=== PATIENT | male | born 1975 | race Caucasian/White ===

== ENCOUNTER 2025-06-22 14:00 | Outpatient (OUT) | payer OTHER, SELFPAY ==
--- OUTSIDE RECORDS SUMMARY | 2025-06-08 12:24 | XMS_ITS | Continuity of Care Document ---
Author Organization [facility] Address [address] [place] [address] Phone Care Team Providers Care Nuclear Medicine Supervisor Name Role Phone Anusha Mcdonald APRN Primary Care Provider Anusha Mcdonald APRN Attending Provider Care Teams Patient Care Team Team Status: Active Member Role Status Dates Kimmy Tolentino DO Customs Manager Active TAWANNA HarrellpecialistAKatie Estrada Care Provider Active Patient Care Team Team Status: Inactive Member Role Status Dates Anusha Mcdonald APRN Primary Care Provider Active Start: June 08, 2025 End: June 08, 2025Victor Manuel Garcia ProviderActiveStart: June 08, 2025 End: June 08, 2025 Chief Complaint and Reason for Visit Chief Complaint Admit Date 3 month June 08, 2025 3: 43pm Allergies, Adverse Reactions, Alerts Allergen Type Severity Reaction Last Updated Verified Status No Known Allergies Allergy Unknown June 08, 2025 3:49pmYesActive Social History Smoking Status Status Start Date End Date Date of Observa tion Smokes tobacco daily (finding) June 04, 2025 9:39am Observation Status Observation Response Date of Response Legal Sex [facility] ([facility]) [facility] Relationship Condition Age at Onset Recorded Date/T gwendolyn father Unknown Problems Active Problems Medical Problem Onset Date Status Peyronie disease Unknown Active Cyst of right hand Unknown Active Current use of insulin Unknown Active Stented coronary artery 2015 Active Erectile dysfunction Unknown Active Type 2 diabetes mellitus Unknown Active Coronary artery disease Unknown Active Dyslipidemia Unknown Active HLD (hyperlipidemia) Unknown Active STEMI (ST elevation myocardial infarction) Unkno wn Active Testicular lump Unknown Active Wheezes Unknown Active Deformity of erect penis Unknown Active HTN (hypertension) Unknown Active Obesity Unknown Active Inactive/Resolved Problems Medical Problem Onset Date Status Diabetes Unknown Resolved Medications Medication Status Dose Units Route Directions Qty Days St art Date Stop Date End Date Instructions Adherence Empagliflozin 25 mg tablet Discontinued 25 MG PO Daily October 15, 2023 1:00amOctober 2023 5:05pmMetformin 1,000 mg tablet Zlbcqowbwoxk7598UWCKWbqgy dailyFebruary 2023 1:00amOctober 2023 5:05pmSemaglutide (Ozempic) 2 mg/dose (8 mg/3 mL) pen psjqfzdcSrnbnelnfhrv0MW SUBCUTevery weekFebruary 2023 1:00amOctober 2023 4:31pmOn Hold: RESUME 3 MONTHS- SEPTEMBER 2024 WITH UPDATED W6QXqtcpcpapvfi 80 mg tablet Jrbsbxgeijms99QNMZNmswtOzkztoud 2023 1:00amOctober 2023 5:04pm Lisinopril 10 mg vucjagOswgsmmjiciy99DDNFOzifhNmapggqn 2023 1:00amOctober 2023 5:05pmAspirin 81 mg tablet,nrgljeabTsstmthcfysi3AHFXWOcvvdSoflhrou 2023 1:00amOctober 2023 4:28pmNystatin 100,000 unit/gram ointment Ixfggx4WLESCEFQCFFQTNkxwc times dailyFebruary 2023 1:00amComplies with drug therapySildenafil (Viagra) 25 mg gjbhuhCxjhaczbuflp29DHXWQscaa as needed October 15, 2023 1:00amOctober 2023 5:06pmNystatin 100,000 unit/gram fjoneuFeaovdxtrkxz2SIACEJPVGVJMFAfinh daily as neededFebruary 2023 1:00am June 08, 2025 3:57pmpen needle, diabetic (Novofine)Discontinued.Route October 15, 2023 1:00amFebruary 2024 3:62ld38I X 6MMInsulin Detemir U- 100 (Levemir Flexpen) 100 unit/mL (3 mL) insulin qreCqodtqdayvga90DJXBQYFUHS Daily at fduqdzy187Lfotydw 2023 12:00amOctober 2023 10:28amInsulin Glargine (Lantus U-100 Insulin) 100 unit/mL gxicfiwtStpewxywlkoz11RURLKXWEQV Every lxoehvu896Ynhpdcs 2023 12:00amJanuary 2024 5:40pmAspirin 81 mg tablet,nkrhlafqZkuifw08XRNVZlmjtRycokuv 2023 4:28pmComplies with drug therapyLancets (Trueplus Lancets) 30 gauge miscActive0.ROUTE.VSRIPHJ137Xnjhkxyo 2023 10:01amUSE TO TEST BLOOD SUGAR EVERY DAYInsulin Glargine (Basaglar Kwikpen U-100 Insulin) 100 unit/mL (3 mL) insulin blqEwdtmveklkiq85TRQKRAXIFS Every lmkemuc114Qojnjfv 2024 1:00amApril 2024 4:33pmPen Needle, Diabetic (Novofine 32) 32 gauge x 1/4 needleActive0.Ipxph892Zjfykjkb 2024 1:00amOnce daily injectionSildenafil (Viagra) 25 mg wksqayKfejfp04UTMNQmqks as needed for sexual ggqbqhzz0692Zfnm 2024 12:42pmComplies with drug therapy Metformin 1,000 mg xhthneXauoxy7601DPNRYwiyl lqqus60255Fiodxws 2024 5:50pm Complies with drug therapyLisinopril 10 mg grcifsTfxziz58MPSLRvqaw63Uadbiyo 2024 5:50pmComplies with drug therapyAtorvastatin 80 mg xubehoYehfqo71KAEKQlefr 9090October 2024 5:50pmComplies with drug therapyLancets (Trueplus Lancets) 30 gauge miscDiscontinuedgauge.ROUTE.FYREUIRVY020Xccscos 2023 12:00am July 16, 2024 10:02amAs directedAtorvastatin 80 mg ffetgtFytxqbrdugpj74ZY FBVyele8809Kezmjzk 2023 5:04pmOctober 2024 5:50pmEmpagliflozin 25 mg hmoiojFpelilhrcrlb72OZFAQuqrl32Brzcwjp 2023 5:05pmJanuary 2024 5:17pm Lisinopril 10 mg chkhkoWsvfyqpbhjzl60VWYEFyank53Jdhhdre 1st, 2024 5:05pmOctober 2024 5:50pmMetformin 1,000 mg pocspgEqlkygtehkgk1652EWGNMuyfc lpdnf65338 October 2023 5:05pmOctober 2024 5:50pmSildenafil (Viagra) 25 mg tablet Skcnxnecmpuq57OAJBYcdwm as needed for sexual hjejjdnw7670Znkejkc 1st, 2024 5:05pmJuly 2024 12:42pmInsulin Glargine (Lantus U-100 Insulin) 100 unit/mL tsabphgjNxssgqibimjt14RQNLKSJQBHRrkbm gvbyerl373Qieopbv 2024 5:39pmJanuary 2024 12:47pmEmpagliflozin (Jardiance) 25 mg ihymwjGjdtjvmltpks75XIWSXasmr 90January 2024 1:00amApril 2024 4:32pmEmpagliflozin (Jardiance) 25 mg flptfpTafzvl13FMKBCmslv4933Rkrfh 2024 4:32pmComplies with drug therapy Insulin Glargine (Basaglar Kwikpen U-100 Insulin) 100 unit/mL (3 mL) insulin pen Yodwgppawvif12JOAYCDCZPCFfhiy jfjqrmh3420Yvjix 2024 4:32pmJuly 2024 4:19pmTamsulosin 0.4 mg capsuleActive0.4MGPODailyJuly 2024 12:00amComplies with drug therapyInsulin Glargine (Basaglar Kwikpen U-100 Insulin) 100 unit/mL (3 mL) insulin foeCsghwzbxbkwn94MUMIRDJOEFRcvja gcdxjso86.590July 2024 4:13pmJuly 2024 4:20pmInsulin Glargine (Basaglar Kwikpen U-100 Insulin) 100 unit/mL (3 mL) insulin dsfWqhzav74MAJHVKYRHSJrvxa .590July 2024 4:19pmIncreased from 20units to 25units 03/09/25Complies with drug therapy Cephalexin 500 mg hokmtrrBtpqwp407GPADKatzj rxgoq965Uebtilt 2024 12:00am Complies with drug therapy Vital Signs Vital Reading Result Reference Range Collection Date/Time Height 70 [in_i] June 08, 2025 3:35svVwydba126.00 kgJunuofl [facility] 2024 3:49pmBody Temperature 97.6 [degF]97.6-99.0Octuofl [facility] 2024 3:49pmHeart Esno496 /ipi19-108OloqdclJune 08, 2025 3:49pmRespiratory rate20 /anl54-50MsspotxJune 08, 2025 3:49pmOxygen saturation by Pulse ouzywjpc28 %95-100June 08, 2025 3:49pmBP Ebcjwqra712 mm[Hg]100-140June 08, 2025 3:49pmBP Svtckzqll554 mm[Hg]60-100Octuofl [facility] 2024 3:49pmBMI (Body Mass Index)40.1 kg/g3Axwmyhj 2024 3:49pm Advance Directives Advance Directive Response Recorded Date/ Time Advance Directives No May 3:14pm Insurance Providers Guarantor Humble Munson I II Address [address] [facility] [address]Kgbrouw Info.Home Phone: Payer Policy Id Subscriber's Name Subscriber Id Effectiv e Date Expiration Date [facility] [id number] Humble Munson III [id number] Encounters Encounter Location(s) Arrival/Admit Date Discharge/Depart Date Provider(s) Departed Physician/Prov ider Office Visit -[facility] [place] June 08, 2025 3:43pm June 08, 2025 4:23pm Anusha Mcdonald APRN
--- NOTE | 2025-06-22 14:12 | XR_ITS ---
The [address] [address] Patient Name: YOLANDA DIEGO MRN: [id number] date: 1975 Sex: M Assigned Patient Location: [facility] Current Patient Location: [facility] Accession/Order Number: [id number] Exam Date: 06/22/2025 15:15 Report Date: 06/22/2025 15:34 At the request of: DAYAN HUBER MD Procedure: XR chest 2V PA AND LATERAL CHEST: CLINICAL HISTORY: Preop clearance . 34 year history of tobacco use. COMPARISON: None There is minor coarsening of interstitial markings. There is no focal parenchymal consolidation, effusion or pneumothorax. The cardiac, hilar and mediastinal silhouettes are within normal limits. There is no vascular congestion. There is slight wedge deformity of the mid to lower thoracic vertebral body. Chronicity is unknown without priors. Subtle dextroscoliotic curvature and endplate spurring are seen at the spine. XR/XR chest 2V IMPRESSION: NO ACUTE CARDIOPULMONARY ABNORMALITY. Impression dictated by: Madelin Poe M.D. 06/22/2025 3:34 PM Dictation Location: [place] [address] Electronically authenticated by: [id number] Y Date: 06/22/2025 15:34
--- NOTE | 2025-06-22 14:12 | ECG_ITS ---
The [facility] Test Date: 2025-06-22 Pat Name: YOLANDA DIEGO Department: Room: - Gender: Male Installation Specialist: : 1975 Requested By: [id number] Order Number: [id number] Reading MD: ROULA ANDERSON Measurements Intervals [place] Rate: 93 P: 49 WA: 164 QRS: 64 QRSD: 108 T: 47 QT: 341 QTc: 425 Interpretive Statements SINUS RHYTHM LOW QRS VOLTAGE IN PRECORDIAL LEADS [QRS DEFLECTION < 1.0 mV IN CHEST LEADS] PROBABLE INFERIOR MYOCARDIAL INFARCTION [35 ms Q WAVE IN II/aVF], PROBABLY OLD POSSIBLE ANTEROLATERAL MYOCARDIAL INFARCTION [30 ms Q WAVE IN I/aVL/V3-V6], OF INDETERMINATE AGE NON SPECIFIC ST CHANGES Abnormal ECG No previous ECG available for comparison Electronically Signed On 06-22-2025 17:16:24 EDT by ROULA ANDERSON
[2025-06-22 15:18] LABS: Glucose Urine UA >=1000 mg/dL (NEGATIVE)
[2025-06-22 15:18] LABS: Hematocrit 52.5 % (42.0-54.0); Hemoglobin 18.0 g/dL (14.0-18.0); Immature Granulocytes Abs Auto 0.10 10^3/uL (0.00-0.03); Immature Granulocytes Pct Auto 0.9 % (0.0-0.5); Lymphocytes Absolute Auto 2.4 10^3/uL (1.2-3.8); Mean Corpuscular HGB Conc 34.3 g/dL (29.9-35.2); Mean Corpuscular Hemoglobin 29.6 pg (25.9-34.0); Mean Corpuscular Volume 86.2 fL (80.0-94.0); Platelet Count 211 10^3/uL (150-450); Red Blood Count 6.09 10^6/uL (4.70-6.10); White Blood Count 11.3 10^3/uL (4.0-11.0)
--- NOTE | 2025-06-22 15:19 | PM.PRESUREVA ---
History of Present Illness History of Present Illness Chief complaint: Persistent Frenulum of Penis Narrative: Mr. Sohan Palma is a pleasant 50-year-old male with persistent frenulum of penis, history of diabetes, history of hypertension, smoker coronary artery disease and history of PA with PCI 1 stent placed in 2015. He has a persistent frenulum of the penis and he is scheduled with Dr. Evita Kaplan on July 21, 2025 for penile frenulectomy Review of Systems ROS Narrative REVIEW OF SYSTEMS: Negative except as stated in HPI, ten or more systems reviewed. Constitutional: No fever, chills, weakness ENT: No sore throat or epistaxis Cardiovascular: No edema, chest pain, palpitations, or activity intolerance Respiratory: No shortness of breath, cough, or wheezing Musculoskeletal: No joint pain or swelling Gastrointestinal: No abdominal pain, constipation, diarrhea, or vomiting Genitourinary: No dysuria or hematuria he reports frenulum is still bothersome with intermittent pain and discomfort Neurological: No numbness, tingling, weakness, or headache Psychiatric: No mood changes PFSH PFSH Medical History (Updated 06/22/25 @ 15:10 by Blanca Silverman) Urethral obstruction ?N36.8 - Other specified disorders of urethra (ICD-10) Smoker ?F17.200 - Nicotine dependence, unspecified, uncomplicated (ICD-10) Peyronie's disease ?N48.6 - Induration penis plastica (ICD-10) Impotence ?N52.9 - Male erectile dysfunction, unspecified (ICD-10) Hyperlipidemia ?E78.5 - Hyperlipidemia, unspecified (ICD-10) Folliculitis ?L73.9 - Follicular disorder, unspecified (ICD-10) Erectile dysfunction ?N52.9 - Male erectile dysfunction, unspecified (ICD-10) Dyslipidemia ?E78.5 - Hyperlipidemia, unspecified (ICD-10) Coronary artery disease ?I25.10 - Atherosclerotic heart disease of [place] coronary artery without angina pectoris (ICD-10) BPH with urinary obstruction ?N40.1 - Benign prostatic hyperplasia with lower urinary tract symptoms (ICD-10) ?N13.8 - Other obstructive and reflux uropathy (ICD-10) Balanitis ?N48.1 - Balanitis (ICD-10) Fibula fracture ?S82.409A - Unspecified fracture of shaft of unspecified fibula, initial encounter for closed fracture (ICD-10) Tibia fracture ?S82.209A - Unspecified fracture of shaft of unspecified tibia, initial encounter for closed fracture (ICD-10) High cholesterol ?E78.00 - Pure hypercholesterolemia, unspecified (ICD-10) Hypertension ?I10 - Essential (primary) hypertension (ICD-10) Myocardial infarction ?I21.9 - Acute myocardial infarction, unspecified (ICD-10) Diabetes ?E11.9 - Type 2 diabetes mellitus without complications (ICD-10) Surgical History (Updated 06/22/25 @ 15:08 by Blanca Silverman) History of heart artery stent ?Z95.5 - Presence of coronary angioplasty implant and graft (ICD-10) H/O vasectomy ?Z98.52 - Vasectomy status (ICD-10) Hx of cholecystectomy ?Z90.49 - Acquired absence of other specified parts of digestive tract (ICD-10) Family History (Updated 06/22/25 @ 14:46 by Blanca Silverman) Other Family history of cancer Family history of diabetes mellitus Family history of hypertension Social History (Updated 06/22/25 @ 14:44 by Blanca Silverman) Within the past year, how often did you have a drink containing alcohol: never Score interpretation: A score less than 4 is consistent with normal alcohol consumption. 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 Highest level of school completed/degree received: 12th grade, no diploma Meds Home Medications and Allergies Home Medications ?Medication ?Instructions ?Recorded ?Confirmed ?Type aspirin 81 mg capsule 81 mg PO DAILY 06/22/25 06/22/25 History atorvastatin 80 mg tablet 80 mg PO DAILY 06/22/25 06/22/25 History clotrimazole 1 % topical cream 1 applic topical BID 06/22/25 06/22/25 History empagliflozin 25 mg tablet 25 mg PO DAILY 06/22/25 06/22/25 History (Jardiance) insulin glargine 100 unit/mL (3 20 unit subcut QPM 06/22/25 06/22/25 History mL) subcutaneous pen (Basaglar KwikPen U-100 Insulin) lisinopril 10 mg tablet 10 mg PO DAILY 06/22/25 06/22/25 History metformin 1,000 mg tablet 1,000 mg PO BID 06/22/25 06/22/25 History nystatin 100,000 unit/gram topical 1 applic topical TID 06/22/25 06/22/25 History cream sitagliptin phosphate 100 mg 100 mg PO DAILY 06/22/25 06/22/25 History tablet (Januvia) tamsulosin 0.4 mg capsule 0.4 mg PO DAILY 06/22/25 06/22/25 History Allergies Allergy/AdvReac Type Severity Reaction Status Date / Time No Known Drug Allergies Allergy Verified 06/22/25 14:39 Exam Narrative Exam Narrative: Constitutional: Awake, alert, comfortable, well-appearing, nontoxic, interactive, vital signs as charted Head: Normocephalic, atraumatic Eyes: Conjunctiva and lids normal to inspection, pupils normal ENT: Tympanic membranes pearly bonilla, nonerythematous, noninjected, naris patent, posterior oropharynx clear, oral mucosa moist Neck: Supple, normal appearance, normal range of motion, no meningeal signs, no lymphadenopathy Respiratory: No respiratory distress, breath sounds clear Cardiovascular: Regular rate and rhythm, strong and regular heart tones Abdomen: Nontender, normal bowel sounds, soft, no CVA tenderness Musculoskeletal: Normal gait, no swelling or edema Skin: No rashes or induration, no lesions, only visible skin inspected Neuro: No neurological deficits, normal sensation Psychiatric: Oriented ?3, normal affect Genitourinary please see surgical note per Dr. Evita Kaplan Assessment and Plan Assessment and Plan (1) Persistent frenulum of penis: Plan Mr. Sohan Palma is scheduled for penile frenulectomy on July 21, 2025
[2025-06-22 15:36] LABS: Anion Gap 13.3; Blood Urea Nitrogen 14.0 mg/dL (7.0-18.0); Calcium 8.7 mg/dL (8.5-10.1); Carbon Dioxide 24.8 mmol/L (21.0-32.0); Chloride 103 mmol/L (98-107); Estimated GFR (African America >60 (>=60 mL/min/1.73m^2); Estimated GFR (Non-African Ame >60 (>=60 mL/min/1.73m^2); Glucose 263 mg/dL (74-106); Potassium 4.1 mmol/L (3.5-5.1); Sodium 137 mmol/L (136-145)
[2025-06-22 15:58] LABS: INR 1.02; Partial Thromboplastin Time 26.7 sec (22.3-36.2); Prothrombin Time 10.8 sec (9.0-11.6)
== END 2025-06-22 14:01 | disposition home or self-care (01) ==
LOC: PST 14:04
PROVIDERS: PCP Nurse Practitioner Family; Visit Provider Urology
DX: Z01.810 Encounter for preprocedural cardiovascular examination (principal); Z01.812 Encounter for preprocedural laboratory examination; Z01.818 Encounter for other preprocedural examination; N48.89 Other specified disorders of penis
CPT/HCPCS: 71046; 80048; 81003; 85025; 85610; 85730; 93005; G0463

== ENCOUNTER 2025-07-21 11:15 | Day surgery (SDC) | payer OTHER, SELFPAY ==
[2025-06-22 14:45] VITALS: BP 175/83; PULSE 104; TEMP 36.3; O2SAT 95; BMI 38.1
[2025-07-21] VITALS (16 sets, daily range): BP systolic 124–157; BP diastolic 84–107; PULSE 82–98; TEMP 36.1–36.3; O2SAT 87–99; BMI 40.2
[2025-07-21] MEDS: CEFAZOLIN SODIUM 2 GM/50 ML D5W PREMIX IV (12:32)
[2025-07-21] MEDS: BUPIVACAINE HCL 0.25% PF 25 MG/10 ML VIAL 5 ML INJ (13:20)
[2025-07-21] MEDS: LIDOCAINE HCL 1% 100 MG/10 ML MDV 5 ML INJ (13:20)
[2025-07-21] MEDS: BACITRACIN OINTMENT 28.4 GM TUBE 1 APPLIC TOPICAL (13:21)
--- NOTE | 2025-07-21 13:53 | PM.URSON ---
Urology Surgery Operative Note Operative Note Procedure Date: 07/21/25 Time Out Performed: yes Pre-op Diagnosis: Persistent, scarred frenulum of penis Post-op Diagnosis: same as pre-op Procedures performed: Frenulectomy Anesthesia: General-LMA (Dr. Max) Primary Surgeon: Evita Kaplan Complications: none Estimated blood loss (mL): 0.25 Findings: Thickened, scarred frenulum at rayo, incised. Excess mucosal cuff on ventral aspect excised. Specimens: frenulum scar Indications for Procedures: 50 year old male with history of uncontrolled DM and ED was evaluated in the office of penile frenulum scar, bothersome and refractory to topical steroids. After improvement of DM and discussion of risks/benefits of procedure, he elected to proceed with the above procedure. Risks were discussed including but not limited to bleeding, pain, infection, damage to surrounding structures, sensation changes, recurrence, wound dehiscence, and need for additional prcoedures. Detailed description of Procedure: After informed consent was obtained, the patient was brought to the operating room and transferred onto the operating table in supine position. Sequential compression devices were placed on bilateral lower extremities. The patient received the appropriate dose of preoperative IV antibiotics and general anesthesia LMA was induced. They were positioned in supine position with the appropriate pressure points padded, prepped and draped in the usual sterile fashion for this procedure. An operative safety timeout was performed confirming the patient's identity and procedure, and all present agreed to proceed. Local anesthestic of 2% lidocaine/0.5% marcaine plain was injected to the distal ventral shaft and dorsal penile nerve for block. A transverse incision was made over the frenulum scar with some release. The frenular artery was directly under this area and therefore further dissection was limited to keep artery intact. The scar was excised sharply. The excess mucosal cuff was also excised. Tissue was sent for pathology. Minimal pinpoint cautery was used for any active bleeding. The rayo was closed in a Heineke-Mikulicz fashion using 5-0 monocryl for interrupted horizontal mattress sutures. This continued longitudinally to reapproximate the mucosal collar. Excellent hemostasis was achieved. Bacitracin, vaseline gauze, Sheri wrap and coban were used for dressing. The patient tolerated the procedure well without complication. The patient was awakened from anesthesia and sent to PACU in stable condition. Plan: Discharge home. No sexual activity for 2-4 weeks. Follow up in 2-4 weeks for wound check.
== END 2025-07-21 15:15 | disposition home or self-care (01) ==
LOC: SURGOUT 11:16
PROVIDERS: PCP Nurse Practitioner Family; Visit Provider Urology
PROC: (CPT 920; principal; 2025-07-21 12:30)
DX: N47.8 Other disorders of prepuce (principal); E11.9 Type 2 diabetes mellitus without complications; I10 Essential (primary) hypertension; I25.10 Atherosclerotic heart disease of native coronary artery without angina pectoris; I25.2 Old myocardial infarction; Z95.5 Presence of coronary angioplasty implant and graft; Z79.4 Long term (current) use of insulin; Z79.84 Long term (current) use of oral hypoglycemic drugs; F17.210 Nicotine dependence, cigarettes, uncomplicated; E66.01 Morbid (severe) obesity due to excess calories; Z68.38 Body mass index [BMI] 38.0-38.9, adult
CPT/HCPCS: 54164; 36415; 82948; 88304; J0665; J0690; J1100; J1885; J2003; J2250; J2371; J2405; J2704; J3010